=== PATIENT | female | born 1985 | race Two or more races ===

== ENCOUNTER 2018-08-29 03:48 | Outpatient (CLI) | payer OTHER ==
[2018-08-29] MEDS ORDERED: PRENATAL TABLE1 EAC1 PO (04:27)
== END 2018-08-30 14:36 | disposition home or self-care (01) ==
LOC: OBS/DEL 03:48
DX: O23.43 Unspecified infection of urinary tract in pregnancy, third trimester (principal); Z34.83 Encounter for supervision of other normal pregnancy, third trimester

== ENCOUNTER 2018-11-11 05:38 | Inpatient (IN) | payer OTHER ==
[~2018-11-11] VITALS: Ht 160 cm; Wt 69.9 kg
[~2018-11-11 05:38] MED LIST: PRENATAL TABLE1 EAC1 PO
[2018-11-13] MEDS ORDERED: IBUPROFEN400 MG PO (11:18)
[2018-11-13] MEDS ORDERED: DOCUSATE SODIU100 MG PO (11:18)
[2018-11-13] MEDS ORDERED: Dermoplast SPRAY TOP (11:18)
[2018-11-13] MEDS ORDERED: MAXFE CAPLET1 EACH PO (11:18)
== END 2018-11-13 12:09 | DRG 807 ==
LOC: LDR 05:38 → OB/GYN 13:03
PROC: 10E0XZZ Delivery of Products of Conception, External Approach (ICD-10-PCS; principal; 2018-11-11)
PROC: 0W8NXZZ Division of Female Perineum, External Approach (ICD-10-PCS; 2018-11-11)
PROC: 4A1HXCZ Monitoring of Products of Conception, Cardiac Rate, External Approach (ICD-10-PCS; 2018-11-11)
PROC: 4A033R1 Measurement of Arterial Saturation, Peripheral, Percutaneous Approach (ICD-10-PCS; 2018-11-11)
DX: O80 Encounter for full-term uncomplicated delivery (principal); Z37.0 Single live birth; Z3A.39 39 weeks gestation of pregnancy

== ENCOUNTER 2023-10-10 17:04 | Emergency (ER) | payer OTHER ==
[~2023-10-10] VITALS: Ht 160 cm; Wt 59.0 kg
[~2023-10-10 17:04] MED LIST changes: +DOCUSATE SODIU100 MG PO; +Dermoplast SPRAY TOP; +IBUPROFEN400 MG PO; +MAXFE CAPLET1 EACH PO
[2023-10-10 18:09] LABS: HEMATOCRIT 35.3 % (36.0-45.00); HEMOGLOBIN 11.9 g/dL (12.0-15.00); MEAN CELL VOLUME 87.4 fL (80.00-100.00); MEAN CORPUSCULAR HEMOGLOBIN 29.4 pg (27.00-32.0); MEAN CORPUSCULAR HGB CONC 33.7 g/dl (32.0-36.0); PLATELET COUNT 190 K/uL (150-450); RED BLOOD COUNT 4.04 M/uL (4.00-6.00); RED CELL DISTRIBUTION WIDTH 13.3 % (11.5-14.5)
[2023-10-10 18:36] LABS: CALCIUM 8.4 mg/dL (8.5-10.1); CREATININE SERUM 1.01 mg/dL (0.55-1.02); GFR 62.02; POTASSIUM 3.59 mEq/L (3.5-5.1)
[2023-10-10 18:46] LABS: URINE APPEARANCE Cloudy; URINE BILIRRUBIN Negative (NEGATIVE); URINE BLOOD Large; URINE COLOR Orange; URINE GLUCOSE Negative (NEGATIVE); URINE LEUKOCYTE Small; URINE NITRATE Negative; URINE PROTEIN 30 (NEGATIVE)
[2023-10-10 18:49] LABS: URINE BACTERIA 172.6 uL (0.0-1933); URINE EPITHELIAL CELLS 11.1 uL (0.0-38.8); URINE RBC 7203.1 uL (0.0-20.8); URINE WBC 153.1 uL (0.0-23.2)
[2023-10-10 20:18] LABS: URINE CRYSTALS FEW /HPF
== END 2023-10-10 20:56 | disposition home or self-care (01) ==
LOC: ER 17:04
PROVIDERS: General Practice
DX: O20.8 Other hemorrhage in early pregnancy (principal); Z3A.01 Less than 8 weeks gestation of pregnancy; Z91.018 Allergy to other foods

== ENCOUNTER 2024-08-05 14:00 | Inpatient (IN) | payer OTHER ==
[~2024-08-05] VITALS: Ht 160 cm; Wt 73.0 kg
[2024-08-17] VITALS (9 sets, daily range): BP systolic 99–126; BP diastolic 61–75; O2SAT 98–100
[2024-08-17] MEDS ORDERED: RINGERS SOLUTION,LACTATED 1,000 ML IV SCH (02:45)
[2024-08-17 03:20] LABS: HEMATOCRIT 35.5 % (36.0-45.00); HEMOGLOBIN 11.8 g/dL (12.0-15.00); MEAN CELL VOLUME 86.4 fL (80.00-100.00); MEAN CORPUSCULAR HEMOGLOBIN 28.8 pg (27.00-32.0); MEAN CORPUSCULAR HGB CONC 33.4 g/dl (32.0-36.0); PLATELET COUNT 188 K/uL (150-450); RED BLOOD COUNT 4.11 M/uL (4.00-6.00); RED CELL DISTRIBUTION WIDTH 13.1 % (11.5-14.5)
[2024-08-17 03:31] LABS: INR < 0.93; PARTIAL THROMBOPLASTIN TIME 23.4 SECONDS (22.0-34.0); PROTHROMBIN TIME 9.8 SECONDS (9.0-11.5)
[2024-08-17 03:34] LABS: ALBUMIN 2.9 gm/dL (3.4-5.0); BILIRUBIN TOTAL 0.25 mg/dL (0.3-1.2); CALCIUM 8.5 mg/dL (8.5-10.1); CREATININE SERUM 0.97 mg/dL (0.55-1.02); GFR 64.62; GLOBULINA 4.1 G/DL (2.4-3.5); POTASSIUM 4.36 mEq/L (3.5-5.1)
[2024-08-17] MEDS ORDERED: IBUprofen 400 MG TABLET PO PRN (05:15)
[2024-08-17] MEDS ORDERED: CHLORHEXIDINE GLUCONATE 120 ML BOTTLE TOP SCH (05:15)
[2024-08-17] MEDS ORDERED: OXYTOCIN 1,000 ML IV SCH (05:15)
[2024-08-17] MEDS ORDERED: LIDOCAINE HCL 1% 10ML VIAL IJ ONE (05:45)
[2024-08-17] MEDS ORDERED: ERYTHROMYCIN BASE OPHT 1GM EACH TUBE OP ONE (05:45)
[2024-08-18 01:16] VITALS: BP 106/70
[2024-08-18 06:20] LABS: HEMATOCRIT 32.6 % (36.0-45.00); MEAN CELL VOLUME 86.7 fL (80.00-100.00); MEAN CORPUSCULAR HEMOGLOBIN 29.3 pg (27.00-32.0); MEAN CORPUSCULAR HGB CONC 33.7 g/dl (32.0-36.0); PLATELET COUNT 172 K/uL (150-450); RED BLOOD COUNT 3.76 M/uL (4.00-6.00); RED CELL DISTRIBUTION WIDTH 13.3 % (11.5-14.5)
[2024-08-18 08:00] VITALS: BP 107/74
[2024-08-18 16:00] VITALS: BP 118/74
[2024-08-19 02:14] VITALS: BP 126/79
[2024-08-19 08:00] VITALS: BP 109/69
[2024-08-19] MEDS ORDERED: DOCUSATE SODIUM 100MG CAP PO ONE (08:15)
== END 2024-08-19 15:22 | disposition home or self-care (01) | DRG 807 ==
LOC: OB/GYN 08-15 14:00 → LDR 08-17 02:28 → OB/GYN 08-17 02:28
PROVIDERS: Obstetrics & Gynecology; ADMIT Obstetrics & Gynecology; ATTEND Obstetrics & Gynecology
PROC: 10E0XZZ Delivery of Products of Conception, External Approach (ICD-10-PCS; principal; 2024-08-17)
PROC: 0KQM0ZZ Repair Perineum Muscle, Open Approach (ICD-10-PCS; 2024-08-17)
PROC: 4A1HXCZ Monitoring of Products of Conception, Cardiac Rate, External Approach (ICD-10-PCS; 2024-08-17)
DX: O70.1 Second degree perineal laceration during delivery (principal); Z37.0 Single live birth; Z3A.40 40 weeks gestation of pregnancy; Z20.822 Contact with and (suspected) exposure to COVID-19

== ENCOUNTER 2024-08-08 09:08 | Outpatient (CLI) | payer OTHER | END 2024-08-08 10:00 | disposition home or self-care (01) | LOC: NST 09:08 | PROVIDERS: ATTEND Obstetrics & Gynecology Maternal & Fetal Medicine | DX: Z34.83 Encounter for supervision of other normal pregnancy, third trimester (principal) ==

== ENCOUNTER 2024-08-12 12:44 | Outpatient (CLI) | payer OTHER | END 2024-08-12 13:35 | disposition home or self-care (01) | LOC: NST 12:44 | PROVIDERS: ATTEND Obstetrics & Gynecology | DX: Z34.83 Encounter for supervision of other normal pregnancy, third trimester (principal) ==

== ENCOUNTER 2024-08-15 12:35 | Outpatient (CLI) | payer OTHER | END 2024-08-15 14:10 | disposition home or self-care (01) | LOC: NST 12:35 | PROVIDERS: ATTEND Obstetrics & Gynecology Gynecology | DX: Z34.83 Encounter for supervision of other normal pregnancy, third trimester (principal) ==